=== PATIENT | male | born 1960 | race Caucasian/White ===

== ENCOUNTER 2016-07-19 01:03 | Inpatient (IN) | payer OTHER ==
[~2016-07-19] VITALS: Ht 177.8 cm; Wt 100.0 kg
[~2016-07-19 01:03] MED LIST: MUCINEX D ER T1 EACH PO; NAPROSYN500 MG PO; NOHOMEMEDS; VALIUM2 MG PO; ZANTAC150 MG PO
[2016-07-19 01:39] LABS: HEMATOCRIT 47.2 % (38.0-50.0); MCH 30.2 PG (29.0-34.0); MCHC 34.5 G/DL (30.0-36.0); MCV 87.6 FL (86-99); MEAN PLAT.VOLUME 10.3 uM^3 (9.0-12.4); PLATELET COUNT 332 K/uL (156-360); RBC DIS.WIDTH-CV 11.9 % (11.8-14.6); RBC DIS.WIDTH-SD 38.2 % (39-53); RED BLOOD COUNT 5.39 M/uL (4.00-5.50); WHITE BLOOD COUNT 13.9 K/uL (4.1-10.2)
[2016-07-19 01:48] LABS: CHLORIDE 108 mEq/L (99-109); POTASSIUM 3.7 mEq/L (3.7-5.4); SODIUM 143 mEq/L (136-147)
[2016-07-19 01:49] LABS: MAGNESIUM 2.2 mg/dL (1.3-2.7)
[2016-07-19 01:51] LABS: GLUCOSE 114 mg/dL (70-99)
[2016-07-19 01:52] LABS: ANION GAP 15 MEQ/L (2-14); D-DIMER ELISA 0.25 mg/L FEU (< 0.57)
[2016-07-19 01:53] LABS: TOTAL BILIRUBIN 0.5 mg/dL (0.0-1.0)
[2016-07-19 01:54] LABS: SERUM ETHYL ALCOHOL 85 mg/dL
[2016-07-19 01:55] LABS: ALKALINE PHOSPHATASE 79 IU/L (3-129); GFR ESTIMATE (CALCULATED) > 59 mL/min/
[2016-07-19 01:56] LABS: UREA NITROGEN (BUN) 17 mg/dL (9-23)
[2016-07-19 01:58] LABS: LIPASE 24 U/L (1.0-51.0)
[2016-07-19 02:01] LABS: TROP-I INTERPRETATION NEGATIVE; TROPONIN-I 0.06 ng/mL (0.0-0.30)
[2016-07-19 02:44] LABS: ADD MIUA? NO; BILIRUBIN NEGATIVE; BLOOD NEGATIVE; COLOR STRAW ((YELLOW)); GLUCOSE (STRIP) NEGATIVE; KETONES NEGATIVE; LEUKOCYTES NEGATIVE; NITRITE NEGATIVE; PROTEIN (STRIP) NEGATIVE; SPECIFIC GRAVITY 1.005 (1.000-1.030); UCUL ADDED? NO; UROBILINOGEN 0.2 MG/DL (0.2-1.0)
[2016-07-19 05:11] VITALS: BP 119/77
[2016-07-19 07:47] LABS: ANION GAP 8 MEQ/L (2-14); CHLORIDE 107 MEQ/L (99-109); GFR ESTIMATE (CALCULATED) > 59 mL/min/; GLUCOSE 96 mg/dL (70-99); POTASSIUM 3.6 MEQ/L (3.7-5.4); SAMPLE HEMOLYSIS CHECK 0; SAMPLE ICTERIC CHECK 0; SAMPLE LIPEMIA CHECK 0; SODIUM 141 MEQ/L (136-147); UREA NITROGEN (BUN) 15 mg/dL (9-23)
[2016-07-19 07:51] LABS: TROP-I INTERPRETATION NEGATIVE; TROPONIN-I 0.11 ng/mL (0.0-0.30)
[2016-07-19 09:41] VITALS: BP 109/68
[2016-07-19 12:09] VITALS: BP 130/83
[2016-07-19 13:50] LABS: TROP-I INTERPRETATION NEGATIVE; TROPONIN-I 0.06 ng/mL (0.0-0.30)
[2016-07-19] MEDS ORDERED: ASPIR-LOW81 MG PO (14:52)
[2016-07-19] MEDS ORDERED: LOPRESSOR25 MG PO (14:52)
== END 2016-07-19 15:23 | disposition home or self-care (01) | DRG 310 ==
LOC: EME 01:03 → EDOF 03:17 → 4EAST 04:47
PROVIDERS: Emergency Medicine; Family Medicine
DX: I47.1 Supraventricular tachycardia (principal); D72.829 Elevated white blood cell count, unspecified; R07.89 Other chest pain
CPT/HCPCS: 71020; 80048 91; 80053; 81003; 83690; 83735; 84443; 84484; 85027; 85379; 93005; 94799; 99281; 99285; G0480; J7030